=== PATIENT | female | born 2000 | race Caucasian/White ===

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

== ENCOUNTER → 2020-02-17 12:56 | Outpatient (CLI) | payer BC | END | disposition home or self-care (01) | LOC: D.LABREF 12:56 | PROVIDERS: ATTEND Pediatrics | DX: Z00.00 Encounter for general adult medical examination without abnormal findings (principal) ==